=== PATIENT | female | born 1945 | race Caucasian/White ===

== ENCOUNTER 2016-11-29 09:44 | Observation (INO) | payer MEDICARE, OTHER ==
[2016-11-22 12:24] LABS: BASOPHILS 1.2 %; BASOPHILS ABSOLUTE 0.06 10/3/uL (0.0-0.16); EOSINOPHILS 5.1 %; EOSINOPHILS ABSOLUTE 0.26 10/3/uL (0.0-0.53); HEMATOCRIT 41.8 % (36.0-48.0); IMMATURE GRANULOCYTES 0.4 %; IMMATURE GRANULOCYTES ABSOLUTE 0.02 10/3/uL (0.0-0.11); LYMPHOCYTES 19.5 %; MEAN CORPUS HGB CONC 33.5 g/dL (32.0-36.0); MEAN CORPUSCULAR VOLUME 95.7 fL (80-100); MEAN PLATELET VOLUME 9.8 fL (9.2-13.0); MONOCYTES 9.6 %; MONOCYTES ABSOLUTE 0.49 10/3/uL (0.21-1.20); NEUTROPHILS 64.2 %; NEUTROPHILS ABSOLUTE 3.29 10/3/uL (2.02-8.40); PLATELET COUNT 189 10/3/uL (150-400); RBC DISTRIBUTION WIDTH 12.8 % (12.0-16.0); RED CELL COUNT 4.37 10/6/uL (4.0-5.6); WHITE BLOOD CELLS 5.1 10/3/uL (4.5-10.5)
[2016-11-22 12:25] LABS: MANUAL DIFF NO %
[2016-11-22 12:31] LABS: A/G RATIO 1.1 (0.7-1.9); ALBUMIN 3.8 G/DL (3.5-5.0); ALKALINE PHOSPHATASE 100 U/L (45-117); BUN (BLOOD UREA NITROGEN) 13 MG/DL (6-23); CALCIUM, SERUM 9.3 MG/DL (8.5-10.4); CHLORIDE, SERUM 102 MMOL/L (96-112); CO2 (CARBON DIOXIDE) 29 MMOL/L (24-34); CREATININE 0.87 MG/DL (0.55-1.02); GFR AFRICAN AMERICAN 78 ML/MIN (>=60); GFR NON AFRICAN AMERICAN 67 ML/MIN (>=60); GLOBULIN 3.6 G/DL (2.5-4.1); GLUCOSE, SERUM 79 MG/DL (60-99); POTASSIUM, SERUM 4.7 MMOL/L (3.5-5.3); SGOT(AST) 62 U/L (5-40); SGPT(ALT) 84 U/L (5-65); SODIUM, SERUM 141 MMOL/L (135-148); TOTAL BILIRUBIN 0.9 MG/DL (0-1.2); TOTAL PROTEIN 7.4 G/DL (6.0-8.5)
--- NOTE | ~2016-11-29 | OP ---
Record Of Operation [facility] [address] [place]. [address] NAME: ROBYN DIOP : 47 STATUS : ADM IN [facility]#: [id number] AGE: 71 ADM/REG DATE : 11/29/16 MR#: [id number] REPORT SERV DATE: 11/29/16 DICTATED BY: SUMIT GUZMAN III DATE: 11/29/16 REPORT STATUS : Draft TRANSCRIBED BY: MODL DATE: 11/29/16 DATE OF PROCEDURE: 11/29/2016 PREOPERATIVE DIAGNOSIS: Symptomatic recurrent incisional hernia. POSTOPERATIVE DIAGNOSIS: Symptomatic recurrent incisional hernia. PROCEDURE: Open repair of recurrent symptomatic incisional hernia with Prolene Ventralight mesh and removal of old mesh. SURGEON: Sumit Guzman M.D. ANESTHESIA: General with intubation. COMPLICATIONS: None. ESTIMATED BLOOD LOSS: Less than 5 mL. SPECIMENS: Old mesh for identification. DRAINS: Raffy-Camarena in subcutaneous tissue. LAP AND SPONGE COUNT: Correct x3. BRIEF HISTORY: This 71-year-old female presented with a symptomatic recurrent subxiphoid incisional hernia. It was felt that open repair of this hernia was indicated. This procedure, the risks, benefits, and alternatives, including not limited to the risk for bleeding, infection, enterotomy, injury to any abdominal structure, postop small bowel obstruction, ileus, recurrence of the hernia, seroma formation, hematoma formation, infection of mesh or enterocutaneous fistula requiring removal of the mesh, and unforeseen complications including deep venous thrombosis, pulmonary embolus, myocardial infarction, stroke, pneumonia, and , were fully and completely explained to the patient and family prior to surgery. The patient had questions, which were answered. She understood the risks and agreed to the surgery as planned. DESCRIPTION OF PROCEDURE: After being properly identified and after discussing risks of surgery with her again in the preoperative area and after identifying the hernia with her in the preoperative area, the patient was taken to the operating room and placed in the supine position on the operating room table. General anesthesia was administered, and she was intubated without difficulty. The abdomen was prepped and draped sterilely in the usual fashion. After an appropriate "time-out" per [employer] standards, a small midline incision was made directly over the previous incision over the hernia in the subxiphoid area. The incision was continued through the subcutaneous tissue. Hemostasis was controlled with cautery. The fascial defect was identified. This was about 3 cm in size. Using sharp dissection, the skin and subcutaneous tissue around the defect anteriorly was fully mobilized. The old mesh, which had been placed previously was identified. This had Record Of Operation [facility] [address] [place]. [address] NAME: ROBYN DIOP : 47 STATUS : ADM IN PAT#: [id number] AGE: 71 ADM/REG DATE : 11/29/16 MR#: [id number] REPORT SERV DATE: 11/29/16 DICTATED BY: SUMIT GUZMAN III DATE: 11/29/16 REPORT STATUS : Draft TRANSCRIBED BY: MODEleno DATE: 11/29/16 retracted and pulled loose from the fascia. It was attached only inferiorly. The old mesh was removed. There were adhesions between the omentum and underside of the fascia posteriorly. Using sharp dissection, these adhesions were carefully removed around the entire periphery of the defect posteriorly. The skin and subcutaneous tissue anterior to the defect was mobilized fully for 3 cm so as to fully define the fascial edges anteriorly and posteriorly. Hemostasis was assured. We then selected a Ventralight mesh. This was cut to the appropriate size for the defect. The mesh was placed posterior to the fascia around the entire edges of the periphery of the defect so as to overlie the edges of the defect by 2 to 3 cm. The mesh was then secured around the edges of the defect with short segments of interrupted #1 Prolene sutures. Upon completion of this, the mesh laid nicely over the defect anchored posteriorly. It was not twisted or kinked in any way. It was not under any tension. Hemostasis was assured. The wound was irrigated copiously with saline. Hemostasis was assured. A Raffy-Camarena drain was brought through a separate stab wound and placed in the subcutaneous tissue. The subcutaneous tissue was closed with a running 3-0 chromic suture. The skin was closed with running subcuticular 4-0 Monocryl stitch. The incision was injected with 0.5% Marcaine. Dressings were applied. Anesthesia was reversed. The patient was taken to the recovery room in stable condition. She tolerated the procedure well. Her family was informed of results of surgery. The patient will remain in the hospital for postoperative care. REJI/DAISY Sumit Guzman III, M.D. / [id number] CC: Sumit Guzman III, M.D.
--- NOTE | ~2016-11-29 | PREOPHP ---
PreOp History and Physical [facility] [address] [place]. [address] NAME: ROBYN DIOP : 47 STATUS : DIS Toro PAT#: [id number] AGE: 71 ADM/REG DATE : 11/29/16 MR#: [id number] REPORT SERV DATE: 11/30/16 DICTATED BY: SUMIT GUZMAN III DATE: 11/03/16 REPORT STATUS : Draft TRANSCRIBED BY: DAISY DATE: 11/03/16 HISTORY OF PRESENT ILLNESS: This 71-year-old female comes to the operating room for open repair of a symptomatic recurrent subxiphoid incisional hernia. The patient has a subxiphoid incisional hernia. She noticed this about two to three weeks ago. This has been associated with local pain. She has had no nausea, vomiting, or obstructive symptoms. She comes to the operating room now for repair of this hernia. PAST MEDICAL HISTORY: 1. Arthritis. 2. Hypertension. 3. Hyperlipidemia. 4. Transient ischemic attack in the past. 5. History of sigmoid colectomy for diverticular disease. 6. History of breast cancer. PAST SURGICAL HISTORY: Includes incisional hernia repair, sigmoid colectomy, bilateral knee replacement, bilateral mastectomy, cholecystectomy, and hysterectomy. FAMILY HISTORY: Positive for kidney disease and stroke. SOCIAL HISTORY: The patient has no history of alcohol use. It should be noted that the patient does have a previous history of tobacco abuse. ALLERGIES: AMOXICILLIN AND CODEINE. REVIEW OF SYSTEMS: The patient complains of back pain, easy bruising, and shortness of breath. Her 14-point review of systems is otherwise unremarkable. PHYSICAL EXAMINATION: GENERAL: Reveals a female, in no acute distress. She is alert and oriented x3. VITAL SIGNS: Blood pressure 137/83, pulse 86, and temperature 98.2. HEENT: Unremarkable. Cranial nerves II through XII are normal. LUNGS: Clear. CARDIAC: Normal. ABDOMEN: Soft and nontender. The patient has a subxiphoid incisional hernia. This hernia is reducible. EXTREMITIES: Normal. ASSESSMENT: 1. A 71-year-old female with symptomatic recurrent subxiphoid incisional hernia. 2. History of transient ischemic attack. 3. Tobacco abuse. 4. Hypertension. 5. History of incisional hernia repair. 6. History of breast cancer. 7. History of sigmoid colectomy. PreOp History and Physical [facility] [address] [place]. [address] NAME: ROBYN DIOP : 47 STATUS : DIS Toro PAT#: [id number] AGE: 71 ADM/REG DATE : 11/29/16 MR#: [id number] REPORT SERV DATE: 11/30/16 DICTATED BY: SUMIT GUZMAN III DATE: 11/03/16 REPORT STATUS : Draft TRANSCRIBED BY: DAISY DATE: 11/03/16 8. Hyperlipidemia. PLAN: The patient comes to the operating room now for open repair of this recurrent and symptomatic incisional hernia. This procedure, the risks, benefits, and alternatives, including but not limited to the risk for bleeding, infection, enterotomy, injury to any abdominal structure, postop small bowel obstruction, ileus, recurrence of the hernia, seroma formation or hematoma formation, infection of the mesh or enterocutaneous fistula requiring removal of the mesh, and unforeseen complications including deep venous thrombosis, pulmonary embolus, myocardial infarction, stroke, pneumonia, and , have been explained to the patient prior to surgery. The expected length of recovery has been explained. The patient's questions have been answered. She clearly understands the risks and agrees to surgery as planned. It should be noted on exam that the patient has deformities of multiple joints of both hands consistent with severe arthritis. REJI/DAISY Sumit Guzman III, M.D. / [id number]
--- NOTE | ~2016-11-29 | HP ---
History And Physical [facility] [address] [place]. [address] NAME: ROBYN DIOP : 47 STATUS : DIS Toro PAT#: [id number] AGE: 71 ADM/REG DATE : 11/29/16 MR#: [id number] REPORT SERV DATE: 01/06/17 DICTATED BY: SUMIT GUZMAN III DATE: 01/05/17 REPORT STATUS : Draft TRANSCRIBED BY: MODEleno DATE: 01/05/17 DATE OF ADMISSION: 11/29/2016 (This is the second history and physical on this patient, which was initially dictated prior to the surgery). HISTORY OF PRESENT ILLNESS: This 71-year-old female comes to the operating room for repair of a symptomatic subxiphoid incisional hernia. The hernia is associated with local pain and discomfort. The patient comes now for repair of this hernia. PAST MEDICAL HISTORY: As previously dictated. MEDICATIONS: As per medication list. PHYSICAL EXAMINATION: GENERAL: This is a female, in no acute distress. She is alert and oriented x3. HEENT: Unremarkable. Cranial nerves 2 through 12 are normal. LUNGS: Clear. CARDIAC: Normal. ABDOMEN: Soft and nontender. Beneath the xiphoid process, there is an incisional hernia. The hernia is reducible. ASSESSMENT: 71-year-old female with symptomatic incisional hernia. PLAN: The patient comes to the operating room now for repair of this incisional hernia. The procedure risks, benefits, and alternatives, including but not limited to the risk for bleeding, infection, enterotomy, injury to any abdominal structure, postop small bowel obstruction, ileus, recurrence of the hernia, seroma formation, hematoma formation, infection of the mesh, or enterocutaneous fistula requiring removal of the mesh, and unforeseen complications including deep venous thrombosis, pulmonary embolus, myocardial infarction, stroke ADDENDUM: This procedure, repair of her subxiphoid incisional hernia, the risks, benefits, and alternatives, including not limited to the risk for bleeding, infection, enterotomy, injury to any abdominal structure, postop small bowel obstruction, ileus, seroma formation, hematoma formation, recurrence of the hernia, infection of the mesh, or enterocutaneous fistula requiring removal of the mesh, and unforeseen complications including deep venous thrombosis, pulmonary embolus, myocardial infarction, stroke, pneumonia, and , have been explained to the patient prior to surgery. She had questions, which have been answered. She understands the risks and agrees to surgery as planned. REJI/DAISY History And Physical [facility] [address] [place]. [address] NAME: ROBYN DIOP : 47 STATUS : DIS Toro PAT#: [id number] AGE: 71 ADM/REG DATE : 11/29/16 MR#: [id number] REPORT SERV DATE: 01/06/17 DICTATED BY: SUMIT GUZMAN III DATE: 01/05/17 REPORT STATUS : Draft TRANSCRIBED BY: DAISY DATE: 01/05/17 Sumit Guzman III, M.D. / [id number] CC: Marco Rich III, M.D.
[~2016-11-29 09:44] MED LIST: 8 HOUR650 MG PO; ACET500CAP PO; ADVIL PO; ALLEGRA180 PO; ALPHAGAN P0.1 % OPH; ASA5GR PO; ASABAYER PO; BRIMONIDINE0.2 % OPH; COMBIGAN0.2 MG/0.5 OP; GGDM5ML PO; MOBIC7.5 PO; MYCOSCROI TOP; NASACORTAQ NAS; NYSTATIN-TRIAMC15 GM TOP; PERCOCET1 TA2 PO; PLAVIX PO; PRILO PO; PRILOSEC40 MG PO; PRIN10 PO; RISP1 PO; SUCR PO; TUMSROLL PO; ZANTAC150 MG PO; ZESTRIL20 MG PO; ZOCOR20 PO; ZOL100 PO
[2016-11-30 06:25] LABS: BASOPHILS 0.4 %; BASOPHILS ABSOLUTE 0.02 10/3/uL (0.0-0.16); EOSINOPHILS 1.1 %; EOSINOPHILS ABSOLUTE 0.05 10/3/uL (0.0-0.53); HEMOGLOBIN 11.9 g/dL (12.0-16.0); IMMATURE GRANULOCYTES 0.2 %; IMMATURE GRANULOCYTES ABSOLUTE 0.01 10/3/uL (0.0-0.11); LYMPHOCYTES 20.8 %; LYMPHOCYTES ABSOLUTE 0.95 10/3/uL (0.67-4.30); MEAN CORPUS HGB CONC 33.1 g/dL (32.0-36.0); MEAN CORPUSCULAR HEMOGLOB 31.7 pg (26.0-34.0); MEAN PLATELET VOLUME 9.8 fL (9.2-13.0); MONOCYTES 10.5 %; MONOCYTES ABSOLUTE 0.48 10/3/uL (0.21-1.20); NEUTROPHILS ABSOLUTE 3.06 10/3/uL (2.02-8.40); PLATELET COUNT 167 10/3/uL (150-400); RBC DISTRIBUTION WIDTH 12.9 % (12.0-16.0); RED CELL COUNT 3.75 10/6/uL (4.0-5.6); WHITE BLOOD CELLS 4.6 10/3/uL (4.5-10.5)
[2016-11-30 06:26] LABS: MANUAL DIFF NO %
[2016-11-30] MEDS ORDERED: PERCOCET 7.5/321 TAB PO (08:23)
== END 2016-11-30 10:35 | disposition home or self-care (01) ==
LOC: SDC/OF 09:44 → PACU 13:51 → 5SO 16:11
PROVIDERS: Surgery
PROC: 0WUF0JZ Supplement Abdominal Wall with Synthetic Substitute, Open Approach (ICD-10-PCS; principal; 2016-11-29 11:00)
DX: K43.2 Incisional hernia without obstruction or gangrene (principal); M19.90 Unspecified osteoarthritis, unspecified site; I10 Essential (primary) hypertension; E78.5 Hyperlipidemia, unspecified; Z86.73 Personal history of transient ischemic attack (TIA), and cerebral infarction without residual deficits; Z85.3 Personal history of malignant neoplasm of breast; Z90.710 Acquired absence of both cervix and uterus; Z90.49 Acquired absence of other specified parts of digestive tract; Z90.13 Acquired absence of bilateral breasts and nipples; Z88.1 Allergy status to other antibiotic agents; Z88.5 Allergy status to narcotic agent
CPT/HCPCS: 71020; 80053; 85025; 87641; 88300; 93005; 96374; 96375; 96376; A9270-GY; C1781; G0378; J0360; J0690; J1170; J2405; J2550; J2710; J3010